=== PATIENT | male | born 1960 | race Caucasian/White ===

== ENCOUNTER 2017-06-29 03:19 | Emergency (ER) | payer MEDICARE ==
[~2017-06-29] VITALS: Ht 170.2 cm; Wt 111.6 kg
[~2017-06-29 03:19] MED LIST: ALLERGY25 MG OR; BENADRYL 50MG C50 MG PO; CIMETIDINE400 M1 PO; CLINDAMYCIN300 M1 PO; PREDNISONE10 MG PO; PREDNISONE20 MG OR; SINGULAIR10 MG OR
[2017-06-29] MEDS ORDERED: NEXIUM40 M1 PO (03:30)
[2017-06-29] MEDS ORDERED: FLONASE AL50 MCG/ACT (03:31)
[2017-06-29] MEDS ORDERED: ALBUTEROL SUL0.083 % IN (03:31)
[2017-06-29] MEDS ORDERED: MEDDOSEPAK PO (06:13)
[2017-06-29 06:26] VITALS: BP 130/89
== END 2017-06-29 06:25 | disposition home or self-care (01) ==
LOC: ED 03:19
DX: K12.2 Cellulitis and abscess of mouth (principal)

== ENCOUNTER 2017-11-13 06:14 | Emergency (ER) | payer MEDICARE ==
[~2017-11-13] VITALS: Ht 170.2 cm; Wt 113.6 kg
[~2017-11-13 06:14] MED LIST changes: +ALBUTEROL SUL0.083 % IN; +FLONASE AL50 MCG/ACT; +MEDDOSEPAK PO; +NEXIUM40 M1 PO
[2017-11-13] MEDS ORDERED: MEDDOSEPAK PO (07:35)
[2017-11-13 07:53] VITALS: BP 127/81
== END 2017-11-13 07:53 | disposition home or self-care (01) ==
LOC: ED 06:14
DX: J39.2 Other diseases of pharynx (principal)

== ENCOUNTER 2019-02-20 08:47 | Emergency (ER) | payer MEDICARE ==
[~2019-02-20] VITALS: Ht 170.2 cm; Wt 109.0 kg
[2019-02-20 10:54] VITALS: BP 114/70
== END 2019-02-20 10:54 ==
LOC: ED 08:47
DX: S62.522B Displaced fracture of distal phalanx of left thumb, initial encounter for open fracture (principal); W31.2XXA Contact with powered woodworking and forming machines, initial encounter; Y93.89 Activity, other specified; Y92.009 Unspecified place in unspecified non-institutional (private) residence as the place of occurrence of the external cause

== ENCOUNTER 2019-02-22 10:42 | Emergency (ER) | payer MEDICARE ==
[~2019-02-22] VITALS: Ht 170.2 cm; Wt 115.0 kg
[2019-02-22 11:18] LABS: URINE BILIRUBIN - DIPSTICK NEGATIVE (NEGATIVE); URINE BLOOD DIPSTICK MODERATE (NEGATIVE); URINE COLOR YELLOW; URINE GLUCOSE - DIPSTICK NEGATIVE (NEGATIVE); URINE KETONE NEGATIVE (NEGATIVE); URINE LEUK ESTERASE NEGATIVE (NEGATIVE); URINE NITRITE - DIPSTICK NEGATIVE (Negative); URINE PH 5.5 (4.5-8.0); URINE PROTEIN - DIPSTICK NEGATIVE (NEG-TRACE); URINE SPECIFIC GRAVITY 1.025; URINE UROBILINOGEN - DIPSTICK 0.2 E.U./dL (0.2)
[2019-02-22 11:30] LABS: URINE WBC 0-2 WBC/hpf (0-5)
[2019-02-22 11:52] VITALS: BP 150/87
== END 2019-02-22 11:57 | disposition home or self-care (01) ==
LOC: ED 10:42
PROVIDERS: Family Medicine
PROC: 0T9B70Z Drainage of Bladder with Drainage Device, Via Natural or Artificial Opening (ICD-10-PCS; principal; 2019-02-22)
DX: R33.9 Retention of urine, unspecified (principal)

== ENCOUNTER 2019-02-23 16:03 | Emergency (ER) | payer MEDICARE | END 2019-02-23 16:07 | disposition left against medical advice (07) | LOC: ED 16:03 → LWOBS 16:07 | DX: Z91.19 Patient's noncompliance with other medical treatment and regimen (principal) ==

== ENCOUNTER 2019-02-28 08:01 | Emergency (ER) | payer MEDICARE ==
[~2019-02-28] VITALS: Ht 170.2 cm; Wt 109.1 kg
[2019-02-28] MEDS ORDERED: TAMSULOSIN HCL0.4 MG PO (08:29)
[2019-02-28] MEDS ORDERED: CEPHALEXIN500 MG PO (08:31)
[2019-02-28] MEDS ORDERED: NORCO1 TA1 PO (08:33)
[2019-02-28 08:45] VITALS: BP 140/86
== END 2019-02-28 08:45 | disposition home or self-care (01) ==
LOC: ED 08:01
DX: Z46.6 Encounter for fitting and adjustment of urinary device (principal)

== ENCOUNTER 2021-09-11 08:31 | Day surgery (SDC) | payer MEDICARE ==
[~2021-09-11] VITALS: Ht 170.2 cm; Wt 110.2 kg
[~2021-09-11 08:31] MED LIST changes: +CEPHALEXIN500 MG PO; +NORCO1 TA1 PO; +PANTOPRAZOLE SO40 M1 PO; +TAMSULOSIN HCL0.4 MG PO
[2021-09-11 10:53] VITALS: BP 103/63
== END 2021-09-11 11:05 | disposition home or self-care (01) ==
LOC: ENDO 08:31 → ORM 12:15 → ENDO 13:00
PROVIDERS: ATTEND Surgery
PROC: 0DJD8ZZ Inspection of Lower Intestinal Tract, Via Natural or Artificial Opening Endoscopic (ICD-10-PCS; principal; 2021-09-11)
DX: Z12.11 Encounter for screening for malignant neoplasm of colon (principal); K64.8 Other hemorrhoids; K21.9 Gastro-esophageal reflux disease without esophagitis; Z86.010 Personal history of colon polyps

== ENCOUNTER 2021-10-17 06:48 | Day surgery (SDC) | payer MEDICARE ==
[~2021-10-17] VITALS: Ht 170.2 cm; Wt 108.9 kg
[~2021-10-17 06:48] MED LIST changes: +ALBUTEROL0.63 MG/3 IN
[2021-10-17 10:02] VITALS: BP 106/69
== END 2021-10-17 09:35 | disposition home or self-care (01) ==
LOC: ORM 06:48
PROVIDERS: ATTEND Urology
PROC: 0VB03ZX Excision of Prostate, Percutaneous Approach, Diagnostic (ICD-10-PCS; principal; 2021-10-17)
PROC: BV49ZZZ Ultrasonography of Prostate and Seminal Vesicles (ICD-10-PCS; 2021-10-17)
DX: N41.0 Acute prostatitis (principal); N40.1 Benign prostatic hyperplasia with lower urinary tract symptoms; N13.8 Other obstructive and reflux uropathy; K21.9 Gastro-esophageal reflux disease without esophagitis; Z96.21 Cochlear implant status; Z86.011 Personal history of benign neoplasm of the brain
CPT/HCPCS: J1956

== ENCOUNTER 2021-11-06 07:15 | Observation (INO) | payer MEDICARE ==
[~2021-11-06] VITALS: Ht 170.2 cm; Wt 106.4 kg
[2021-11-06] VITALS (23 sets, daily range): BP systolic 95–120; BP diastolic 56–84
[2021-11-06] MEDS ORDERED: Levaquin PO (07:49)
[2021-11-06 08:44] LABS: HEMOGLOBIN 13.6 g/dl (14.0-18.0); MEAN CELL VOLUME 91.1 fL CALC (80.0-100.0); MEAN CORPUSCULAR HGB 29.5 pG CALC (26.0-32.0); MEAN CORPUSCULAR HGB CONC 32.4 g/dL CAL (32.0-36.0); NEUT# 24.24 thou/uL (1.82-7.42); RED BLOOD COUNT 4.61 mill/uL (4.70-6.10); RED CELL DISTRI WIDTH 14.2 % (11.5-15.5)
[2021-11-06 08:44] LABS: URINE BLOOD DIPSTICK NEGATIVE (NEGATIVE); URINE GLUCOSE - DIPSTICK NEGATIVE (NEGATIVE); URINE KETONE TRACE mg/dL (NEGATIVE); URINE LEUK ESTERASE NEGATIVE (NEGATIVE); URINE PH 5.5 (4.5-8.0); URINE PROTEIN - DIPSTICK NEGATIVE (NEG-TRACE); URINE SPECIFIC GRAVITY >=1.030
[2021-11-06 08:53] LABS: URINE BILIRUBIN - DIPSTICK SMALL (NEGATIVE); URINE COLOR DK. YELLOW; URINE NITRITE - DIPSTICK NEGATIVE (Negative)
[2021-11-06 09:16] LABS: ALKALINE PHOSPHATASE 95 u/l (38-126); BUN 11 mg/dL (9-20); BUN/CREATININE RATIO 12 (12-20 (CALC)); CARBON DIOXIDE 26 mmol/l (22-30); CHLORIDE 103 mmol/l (95-108); CREATININE 0.9 mg/dL (0.7-1.3); GFR > 60 ML/MIN (>=60 (CALC)); GFR FOR AFR.AMER. > 60 ML/MIN (>=60 (CALC)); LIPASE 36 u/l (23-300); POTASSIUM 4.3 mmol/l (3.5-5.1); SGOT/AST 24 u/l (17-59); TOTAL PROTEIN 7.8 g/dL (6.3-8.2)
[2021-11-06 09:18] LABS: ANION GAP 11 (6-22 (CALC)); BILIRUBIN, TOTAL 0.9 mg/dL (0.0-1.4); SODIUM 136 mmol/l (137-146)
[2021-11-07 03:54] VITALS: BP 108/62
[2021-11-07 06:17] LABS: HEMATOCRIT 39.1 % (39.0-50.0); HEMOGLOBIN 12.3 g/dl (14.0-18.0); MEAN CELL VOLUME 92.7 fL CALC (80.0-100.0); MEAN CORPUSCULAR HGB 29.1 pG CALC (26.0-32.0); MEAN CORPUSCULAR HGB CONC 31.5 g/dL CAL (32.0-36.0); RED BLOOD COUNT 4.22 mill/uL (4.70-6.10); RED CELL DISTRI WIDTH 14.6 % (11.5-15.5)
[2021-11-07 06:21] LABS: ANION GAP 12 (6-22 (CALC)); BUN 12 mg/dL (9-20); BUN/CREATININE RATIO 16 (12-20 (CALC)); CARBON DIOXIDE 24 mmol/l (22-30); CHLORIDE 106 mmol/l (95-108); CREATININE 0.7 mg/dL (0.7-1.3); GFR > 60 ML/MIN (>=60 (CALC)); GFR FOR AFR.AMER. > 60 ML/MIN (>=60 (CALC)); MAGNESIUM 2.2 mg/dL (1.6-2.3); POTASSIUM 4.1 mmol/l (3.5-5.1); SODIUM 138 mmol/l (137-146)
[2021-11-07 08:35] VITALS: BP 122/76
[2021-11-07 16:08] VITALS: BP 115/72
[2021-11-07 19:31] VITALS: BP 108/72
[2021-11-08 03:15] VITALS: BP 120/66
[2021-11-08 05:26] LABS: HEMATOCRIT 38.9 % (39.0-50.0); HEMOGLOBIN 12.3 g/dl (14.0-18.0); MEAN CORPUSCULAR HGB 29.1 pG CALC (26.0-32.0); MEAN CORPUSCULAR HGB CONC 31.6 g/dL CAL (32.0-36.0); RED BLOOD COUNT 4.23 mill/uL (4.70-6.10); RED CELL DISTRI WIDTH 14.4 % (11.5-15.5)
[2021-11-08 05:50] LABS: ANION GAP 12 (6-22 (CALC)); BUN 9 mg/dL (9-20); BUN/CREATININE RATIO 12 (12-20 (CALC)); CARBON DIOXIDE 24 mmol/l (22-30); CHLORIDE 107 mmol/l (95-108); CREATININE 0.7 mg/dL (0.7-1.3); GFR > 60 ML/MIN (>=60 (CALC)); GFR FOR AFR.AMER. > 60 ML/MIN (>=60 (CALC)); MAGNESIUM 2.3 mg/dL (1.6-2.3); POTASSIUM 4.9 mmol/l (3.5-5.1); SODIUM 138 mmol/l (137-146)
[2021-11-08 07:00] VITALS: BP 114/75
[2021-11-08] MEDS ORDERED: MAPAP325 MG PO (11:53)
[2021-11-08] MEDS ORDERED: LEVAQUIN750 M1 PO (11:54)
[2021-11-08] MEDS ORDERED: KEFLEX500 MG PO (11:55)
== END 2021-11-08 12:48 | disposition home or self-care (01) ==
LOC: ED 07:15 → ED-I 11:19 → ED 11:29 → ED-I 11:30 → MS2 11:30
PROVIDERS: Nurse Practitioner; ADMIT Internal Medicine; ATTEND Internal Medicine
DX: N45.3 Epididymo-orchitis (principal); N40.0 Benign prostatic hyperplasia without lower urinary tract symptoms; N43.3 Hydrocele, unspecified; Q85.00 Neurofibromatosis, unspecified
CPT/HCPCS: G0378; J1650; Q9967

== ENCOUNTER 2021-11-13 09:45 | Emergency (ER) | payer MEDICARE ==
[~2021-11-13] VITALS: Ht 170.2 cm; Wt 106.0 kg
[~2021-11-13 09:45] MED LIST changes: +KEFLEX500 MG PO; +LEVAQUIN750 M1 PO; +Levaquin PO; +MAPAP325 MG PO
[2021-11-13 10:02] VITALS: BP 128/81
[2021-11-13 11:04] LABS: URINE BILIRUBIN - DIPSTICK NEGATIVE (NEGATIVE); URINE BLOOD DIPSTICK NEGATIVE (NEGATIVE); URINE COLOR YELLOW; URINE GLUCOSE - DIPSTICK NEGATIVE (NEGATIVE); URINE KETONE NEGATIVE (NEGATIVE); URINE LEUK ESTERASE NEGATIVE (NEGATIVE); URINE PROTEIN - DIPSTICK NEGATIVE (NEG-TRACE); URINE UROBILINOGEN - DIPSTICK 0.2 E.U./dL (0.2)
[2021-11-13 11:06] LABS: URINE NITRITE - DIPSTICK NEGATIVE (Negative)
[2021-11-13 11:07] LABS: HEMATOCRIT 41.6 % (39.0-50.0); HEMOGLOBIN 13.4 g/dl (14.0-18.0); MEAN CELL VOLUME 91.6 fL CALC (80.0-100.0); MEAN CORPUSCULAR HGB 29.5 pG CALC (26.0-32.0); MEAN CORPUSCULAR HGB CONC 32.2 g/dL CAL (32.0-36.0); NEUT# 8.42 thou/uL (1.82-7.42); RED BLOOD COUNT 4.54 mill/uL (4.70-6.10); RED CELL DISTRI WIDTH 14.3 % (11.5-15.5)
[2021-11-13 11:17] LABS: ALBUMIN 3.8 g/dL (3.2-5.0); ALKALINE PHOSPHATASE 80 u/l (38-126); BUN 16 mg/dL (9-20); BUN/CREATININE RATIO 16 (12-20 (CALC)); CHLORIDE 102 mmol/l (95-108); GFR > 60 ML/MIN (>=60 (CALC)); GFR FOR AFR.AMER. > 60 ML/MIN (>=60 (CALC)); POTASSIUM 4.7 mmol/l (3.5-5.1); SGOT/AST 20 u/l (17-59); SODIUM 138 mmol/l (137-146); TOTAL PROTEIN 7.4 g/dL (6.3-8.2)
[2021-11-13 11:18] LABS: ANION GAP 12 (6-22 (CALC)); BILIRUBIN, TOTAL 0.2 mg/dL (0.0-1.4); CARBON DIOXIDE 29 mmol/l (22-30)
[2021-11-13 11:34] LABS: IMMATURE GRANULOCYTES 6.8 % (0.0-5.0)
[2021-11-13 13:08] VITALS: BP 128/81
== END 2021-11-13 13:15 | disposition home or self-care (01) ==
LOC: ED 09:45
PROVIDERS: Family Medicine
DX: N45.3 Epididymo-orchitis (principal); K21.9 Gastro-esophageal reflux disease without esophagitis; Q85.00 Neurofibromatosis, unspecified; N40.0 Benign prostatic hyperplasia without lower urinary tract symptoms

== ENCOUNTER 2024-02-19 08:53 | Emergency (ER) | payer MEDICARE ==
[~2024-02-19] VITALS: Ht 170.2 cm; Wt 113.3 kg
[2024-02-19] VITALS (10 sets, daily range): BP systolic 99–115; BP diastolic 52–75
[2024-02-19 10:26] LABS: CREATININE 0.9 mg/dL (0.7-1.3); POTASSIUM 4.6 mmol/l (3.5-5.1)
== END 2024-02-19 11:22 | disposition home or self-care (01) ==
LOC: ED 08:53
PROVIDERS: Family Medicine
DX: U07.1 COVID-19 (principal); R05.9 Cough, unspecified; K21.9 Gastro-esophageal reflux disease without esophagitis; Q85.00 Neurofibromatosis, unspecified

== ENCOUNTER 2024-04-08 21:53 | Emergency (ER) | payer MEDICARE ==
[~2024-04-08] VITALS: Ht 170.2 cm; Wt 111.3 kg
[2024-04-08 23:17] LABS: URINE BILIRUBIN - DIPSTICK Negative (NEGATIVE); URINE BLOOD DIPSTICK Trace-intact (NEGATIVE); URINE GLUCOSE - DIPSTICK Negative (NEGATIVE); URINE KETONE Negative (NEGATIVE); URINE LEUK ESTERASE Negative (NEGATIVE); URINE NITRITE - DIPSTICK Negative (Negative); URINE PH 6.5 (4.5-8.0); URINE PROTEIN - DIPSTICK Negative (NEG-TRACE); URINE UROBILINOGEN - DIPSTICK 0.2 E.U./dL (0.2)
[2024-04-08 23:18] LABS: URINE COLOR Yellow
[2024-04-08] MEDS ORDERED: TAMSULOSIN0.4 MG PO (23:25)
[2024-04-08] MEDS ORDERED: KEFLEX500 MG PO (23:25)
[2024-04-08] MEDS ORDERED: CEPHALEXIN MONOHYDRATE 500 MG/CAP PO ONE (23:30)
[2024-04-08 23:50] VITALS: BP 96/73
== END 2024-04-08 23:55 | disposition home or self-care (01) ==
LOC: ED 21:53
PROVIDERS: Family Medicine
PROC: 0T9B70Z Drainage of Bladder with Drainage Device, Via Natural or Artificial Opening (ICD-10-PCS; principal; 2024-04-08)
DX: N40.1 Benign prostatic hyperplasia with lower urinary tract symptoms (principal); R33.8 Other retention of urine

== ENCOUNTER 2024-04-09 10:01 | Emergency (ER) | payer MEDICARE ==
[~2024-04-09] VITALS: Ht 170.2 cm; Wt 117.9 kg
[~2024-04-09 10:01] MED LIST changes: +TAMSULOSIN0.4 MG PO
[2024-04-09 10:15] VITALS: BP 109/71
[2024-04-09 10:30] VITALS: BP 92/69
[2024-04-09 10:45] VITALS: BP 95/69
[2024-04-09 11:00] VITALS: BP 88/65
[2024-04-09 11:17] VITALS: BP 106/70
[2024-04-09 11:21] VITALS: BP 88/65
== END 2024-04-09 11:28 | disposition home or self-care (01) ==
LOC: ED 10:01
DX: R31.9 Hematuria, unspecified (principal); R33.9 Retention of urine, unspecified; Z96.0 Presence of urogenital implants

== ENCOUNTER 2024-04-19 17:21 | Emergency (ER) | payer MEDICARE ==
[2024-04-19] VITALS (12 sets, daily range): BP systolic 118–134; BP diastolic 76–90
[~2024-04-19] VITALS: Ht 170.2 cm; Wt 108.0 kg
[2024-04-19 19:48] LABS: URINE BILIRUBIN - DIPSTICK Negative (NEGATIVE); URINE BLOOD DIPSTICK Moderate (NEGATIVE); URINE GLUCOSE - DIPSTICK Negative (NEGATIVE); URINE KETONE Negative (NEGATIVE); URINE LEUK ESTERASE Trace (NEGATIVE); URINE NITRITE - DIPSTICK Negative (Negative); URINE PH 5.5 (4.5-8.0); URINE PROTEIN - DIPSTICK Negative (NEG-TRACE); URINE SPECIFIC GRAVITY 1.015; URINE UROBILINOGEN - DIPSTICK 0.2 E.U./dL (0.2)
[2024-04-19 19:49] LABS: URINE COLOR Yellow
[2024-04-19 19:58] LABS: URINE WBC 0-2 WBC/hpf (0-5)
== END 2024-04-19 20:53 | disposition home or self-care (01) ==
LOC: ED 17:21
PROVIDERS: Nurse Practitioner
PROC: 0T9B70Z Drainage of Bladder with Drainage Device, Via Natural or Artificial Opening (ICD-10-PCS; principal; 2024-04-19)
DX: N40.1 Benign prostatic hyperplasia with lower urinary tract symptoms (principal); R33.8 Other retention of urine; K21.9 Gastro-esophageal reflux disease without esophagitis; Q85.00 Neurofibromatosis, unspecified